=== PATIENT | female | born 1955 | race Caucasian/White ===

== ENCOUNTER 2020-01-26 22:40 | Observation (INO) | payer MEDICARE, BC ==
[~2020-01-26] VITALS: Ht 167.6 cm; Wt 78.3 kg
[2020-01-26 22:59] LABS: BASOPHILS ABSOLUTE AUTO 0.05 K/mm3 (0.00-0.23); BASOPHILS PERCENT AUTO 1 % (0-2); EOSINOPHILS ABSOLUTE AUTO 0.14 K/mm3 (0.00-0.68); EOSINOPHILS PERCENT AUTO 1 % (0-6); Hematocrit 48.4 % (33.0-51.0); IMMATURE GRAN ABSOLUTE AUTO 0.03 K/mm3 (0.00-0.10); IMMATURE GRAN PERCENT AUTO 0 % (0-1); LYMPHOCYTES ABSOLUTE AUTO 4.94 K/mm3 (0.84-5.20); LYMPHOCYTES PERCENT AUTO 46 % (21-46); MONOCYTES ABSOLUTE AUTO 0.78 K/mm3 (0.16-1.47); MONOCYTES PERCENT AUTO 7 % (4-13); Mean Corpuscular HGB 28.6 pg (26.0-34.0); Mean Corpuscular HGB Conc 33.1 g/dL (31.5-36.5); Mean Corpuscular Volume 87 fL (80-100); Mean Platelet Volume 9.4 fL (9.1-12.4); NEUTROPHILS ABSOLUTE AUTO 4.77 K/mm3 (1.96-9.15); NEUTROPHILS PERCENT AUTO 45 % (41-73); Platelet Count 246 K/mm3 (150-400); RDW Coefficient Variation 12.4 % (11.7-14.2); RDW Standard Deviation 39.2 fL (35.1-46.3); Red Blood Cell Count 5.59 M/mm3 (3.80-5.20); White Blood Cell Count 10.71 K/mm3 (4.00-11.30)
[2020-01-26 23:12] LABS: Alanine Aminotransfer (ALT/SGP 31 U/L (12-78); Albumin, Blood 3.8 g/dL (3.4-5.0); Albumin/Globulin Ratio 1.1 (0.8-1.8); Alk Phos 79 U/L (50-136); Anion Gap 9 mmol/L (6-16); Aspartate Aminotrans (AST/SGOT 22 U/L (12-37); Bilirubin, Total 0.3 mg/dL (0.1-1.0); Blood Urea Nitrogen 15 mg/dL (8-24); Bun/Creatinine Ratio 15.9 (12.0-20.0); CO2, Blood 24 mmol/L (21-32); Calcium, Blood 9.1 mg/dL (8.5-10.1); Chloride, Blood 111 mmol/L (98-108); Creatinine, Blood 0.95 mg/dL (0.40-1.00); Globulin, Blood 3.6 g/dL (2.2-4.0); Glomerular Filtration Rate >60 (60-); Glucose, Blood 109 mg/dL (70-99); Potassium, Blood 3.5 mmol/L (3.5-5.5); Sodium, Blood 144 mmol/L (136-145); Total Protein, Blood 7.4 g/dL (6.4-8.2)
[2020-01-26 23:13] LABS: International Normalized Ratio 0.97; Prothrombin Time Results 10.4 Sec (9.7-11.5)
[2020-01-26 23:54] LABS: Source, Urine Clean Catch
[2020-01-26 23:59] LABS: Bilirubin, Urine Neg (Neg); Blood, Urine Neg (Neg); Glucose Qualitative, Urine Neg (Neg); Ketones, Urine Neg (Neg); Leukocyte Esterase, Urine Neg (Neg); Nitrite, Urine Neg (Neg); Protein, Urine Neg (Neg); Urobilinogen, Urine NORM (Normal)
[2020-01-27] LABS: Appearance, Urine Clear (Clear); Color, Urine Pale Yellow (P-Yellow)
--- NOTE | 2020-01-27 05:08 | NUR ---
SUMMARY PT ARRIVED TO FLOOR IN NO DISTRESS. PT HAD NO COMPLAINTS. PT NEURO'S INTACT. PT HAS BEEN SLEEPING IN NO DISTRESS. PT CALL LIGHT IN REACH AND BED ALARM ON FOR SAFETY.
[2020-01-27 09:09] LABS: BASOPHILS ABSOLUTE AUTO 0.04 K/mm3 (0.00-0.23); BASOPHILS PERCENT AUTO 1 % (0-2); EOSINOPHILS ABSOLUTE AUTO 0.05 K/mm3 (0.00-0.68); EOSINOPHILS PERCENT AUTO 1 % (0-6); Hematocrit 46.5 % (33.0-51.0); Hemoglobin 15.3 g/dL (11.5-16.0); IMMATURE GRAN ABSOLUTE AUTO 0.02 K/mm3 (0.00-0.10); IMMATURE GRAN PERCENT AUTO 0 % (0-1); LYMPHOCYTES ABSOLUTE AUTO 2.49 K/mm3 (0.84-5.20); LYMPHOCYTES PERCENT AUTO 32 % (21-46); MONOCYTES ABSOLUTE AUTO 0.58 K/mm3 (0.16-1.47); MONOCYTES PERCENT AUTO 7 % (4-13); Mean Corpuscular HGB 28.7 pg (26.0-34.0); Mean Corpuscular HGB Conc 32.9 g/dL (31.5-36.5); Mean Corpuscular Volume 87 fL (80-100); Mean Platelet Volume 9.9 fL (9.1-12.4); NEUTROPHILS ABSOLUTE AUTO 4.63 K/mm3 (1.96-9.15); NEUTROPHILS PERCENT AUTO 59 % (41-73); Platelet Count 232 K/mm3 (150-400); RDW Coefficient Variation 12.5 % (11.7-14.2); RDW Standard Deviation 39.8 fL (35.1-46.3); Red Blood Cell Count 5.33 M/mm3 (3.80-5.20); White Blood Cell Count 7.81 K/mm3 (4.00-11.30)
[2020-01-27 09:39] LABS: Alanine Aminotransfer (ALT/SGP 25 U/L (12-78); Albumin, Blood 3.4 g/dL (3.4-5.0); Alk Phos 69 U/L (50-136); Anion Gap 7 mmol/L (6-16); Aspartate Aminotrans (AST/SGOT 17 U/L (12-37); Bilirubin, Total 0.5 mg/dL (0.1-1.0); Blood Urea Nitrogen 12 mg/dL (8-24); Bun/Creatinine Ratio 13.7 (12.0-20.0); CO2, Blood 26 mmol/L (21-32); Calcium, Blood 8.5 mg/dL (8.5-10.1); Chloride, Blood 113 mmol/L (98-108); Creatinine, Blood 0.88 mg/dL (0.40-1.00); Globulin, Blood 3.3 g/dL (2.2-4.0); Glomerular Filtration Rate >60 (60-); Glucose, Blood 92 mg/dL (70-99); Potassium, Blood 3.7 mmol/L (3.5-5.5); Sodium, Blood 146 mmol/L (136-145); Total Protein, Blood 6.7 g/dL (6.4-8.2)
[2020-01-27 09:43] LABS: Cholesterol 242 mg/dL (50-200); HDL Cholesterol 60 mg/dL (>39); LDL/HDL RATIO 2.7; Low Density Lipoprotein Chol 160 mg/dL (0-110); Triglycerides 111 mg/dL (30-160); Very Low Density Lipoprot Chol 22 mg/dL (6-32)
--- NOTE | 2020-01-27 17:54 | NUR ---
SHIFT SUMMARY PT HAS HAD NO COMPLAINTS THIS SHIFT. PT IS ALERT AND ORIENTED X4. NO WEAKNESS NOTED. PT INDEPENDENT IN ROOM WITH NO DIZZINESS/UNSTEADINESS. PT WANTING TO GO HOME BUT WAITING FOR ECHO RESULTS FOR DR. BROWN TO DECIDE ON THE PLAN. NO ACUTE CHANGES THIS SHIFT. CALL LIGHT IN REACH. WILL CONTINUE TO MONITOR AND REPORT TO ONCOMING RN.
--- NOTE | 2020-01-28 03:56 | NUR ---
CALL TO HOSPITALIST. PT REPORTING HEADACHE 09/12. REQUESTING TYLENOL. NEURO STATUS WNL. NEW ORDER FROM DR. DURBIN FOR TYL 650MG PO Q6 PRN.
--- NOTE | 2020-01-28 04:55 | NUR ---
SHIFT SUMMARY: VSS. AFEB. AAOX3. ABLE TO COMMUNICATE NEEDS. BILATERAL SANITARY ENGINEER/PUSHES/PULLS STRONG AND EQUAL. SPEECH CLEAR. FACE SYMMETRICAL. DENIES N/T. MED X1 FOR HEADACHE 09/12. NO ACUTE CHANGES TONIGHT. WILL CONT TO MONITOR.
[2020-01-28 05:38] LABS: Hematocrit 45.5 % (33.0-51.0); Hemoglobin 15.3 g/dL (11.5-16.0)
[2020-01-28 06:01] LABS: Anion Gap 5 mmol/L (6-16); Blood Urea Nitrogen 13 mg/dL (8-24); Bun/Creatinine Ratio 15.2 (12.0-20.0); CO2, Blood 27 mmol/L (21-32); Calcium, Blood 8.7 mg/dL (8.5-10.1); Chloride, Blood 111 mmol/L (98-108); Creatinine, Blood 0.86 mg/dL (0.40-1.00); Glomerular Filtration Rate >60 (60-); Glucose, Blood 101 mg/dL (70-99); Potassium, Blood 3.8 mmol/L (3.5-5.5); Sodium, Blood 143 mmol/L (136-145)
[2020-01-28] MEDS ORDERED: ACET325 PO (09:18)
[2020-01-28] MEDS ORDERED: ASPI81CH PO (09:19)
[2020-01-28] MEDS ORDERED: ATOR40TA PO (09:20)
[2020-01-28] MEDS ORDERED: LISI5 PO (09:29)
--- NOTE | 2020-01-28 12:02 | NUR ---
DISCHARGE PT DISCHARGED TO HOME. THIS RN EXPLAINED DISCHARGE INSTRUCTIONS AND MEDICATIONS TO PT AND SHE REPORTS SHE UNDERSTANDS. PT WAS ENCOURAGED TO CHECK BLOOD PRESSURES AT HOME. PT AMBULATORY TO PRIVATE VEHICLE. BELONGINGS WITH PT AND PT'S SPOUSE.
== END 2020-01-28 10:06 | disposition home or self-care (01) ==
LOC: ER 22:40 → MEDS 22:41
PROVIDERS: Emergency Medicine; Internal Medicine; ADMIT Internal Medicine
DX: G92 Toxic encephalopathy (principal); I10 Essential (primary) hypertension; E78.5 Hyperlipidemia, unspecified; R51 Headache; I65.23 Occlusion and stenosis of bilateral carotid arteries; Z79.899 Other long term (current) drug therapy
CPT/HCPCS: 36415; 70450; 70551; 80048; 80053; 80061; 81003; 84443; 85014; 85018; 85025; 85610; 93005; 93010; 93306; 93880; 96361; 96372; 96374; 96375; 99285-25; A9270; A9270-GY; G0378; J1200; J1650; J2405; J2765; J7030

== ENCOUNTER → 2024-02-21 | Outpatient (CLI) | payer MEDICARE, OTHER ==
[~2024-02-21] MED LIST: ACET325 PO; ASPI81CH PO; ATOR40TA PO; LISI5 PO
== END ==
LOC: LAB SHORT 17:39 → LAB 17:39
DX: R35.0 Frequency of micturition (principal)
CPT/HCPCS: 87086